=== PATIENT | female | born 1995 | race Two or more races ===

== ENCOUNTER 2019-01-31 04:24 | Emergency (ER) ==
[~2019-01-31] VITALS: Ht 167.6 cm; Wt 95.3 kg
[2019-01-31 04:27] VITALS: BP 138/79
[2019-01-31] MEDS ORDERED: DEXAMETHASONE SOD PHOSPHATE 10 MG/ML VIAL ONE (05:12)
[2019-01-31] MEDS ORDERED: LIDOCAINE VISCOUS 2% UD 15 ML UDC ONE (05:13)
[2019-01-31] MEDS ORDERED: DEXAMETHASONE SOD PHOSPHATE 10 MG/ML VIAL IM ONE (05:30)
[2019-01-31] MEDS ORDERED: LIDOCAINE VISCOUS 2% UD 15 ML UDC MM ONE (05:30)
== END 2019-01-31 05:25 | disposition home or self-care (01) ==
LOC: ER 04:31
DX: J02.9 Acute pharyngitis, unspecified (principal); R59.1 Generalized enlarged lymph nodes
CPT/HCPCS: 87070; 87880; 96372; 99283; J1100; 86403-TC

== ENCOUNTER 2019-05-25 13:25 | Emergency (ER) | payer SELFPAY ==
[~2019-05-25] VITALS: Ht 167.6 cm; Wt 90.7 kg
[2019-05-25] MEDS ORDERED: KETOROLAC TROMETHAMINE INJ 30 MG/ML VIAL ONE (13:43)
[2019-05-25] MEDS ORDERED: ONDANSETRON HCL/PF 4 MG/2 ML VIAL ONE (13:44)
[2019-05-25] MEDS ORDERED: ONDANSETRON HCL/PF 4 MG/2 ML VIAL IVP ONE (14:00)
[2019-05-25] MEDS ORDERED: IV NS 0.9% 1,000 ML BAG IV ONE (14:00)
[2019-05-25] MEDS ORDERED: KETOROLAC TROMETHAMINE INJ 30 MG/ML VIAL IV ONE (14:00)
[2019-05-25 14:01] LABS: APPEARANCE,URINE Clear (CLEAR)
[2019-05-25 14:02] LABS: BASOPHILS # (AUTO) 0.1 /CMM (0.0-0.2); BASOPHILS % (AUTO) 0.5 % (0.0-2.0); EOSINOPHILS % (AUTO) 0.3 % (0.0-6.0); HEMATOCRIT 45 % (33-45); HEMOGLOBIN 15.1 g/dL (11.5-14.8); LYMPHOCYTES # (AUTO) 2.6 /CMM (0.8-4.8); LYMPHOCYTES % (AUTO) 16.6 % (20.0-44.0); MEAN CORPUSCULAR HGB CONC 34 g/dl (31.0-36.0); MEAN CORPUSCULAR VOLUME 88 fL (82-100); MONOCYTES # (AUTO) 0.7 /CMM (0.1-1.30); MONOCYTES % (AUTO) 4.8 % (2.0-12.0); NEUTROPHILS % (AUTO) 77.8 % (43.0-81.0); PLATELET COUNT (AUTO) 269 /CMM (150-450); WHITE BLOOD COUNT (AUTO) 15.5 K/uL (4.3-11.0)
[2019-05-25 14:03] LABS: COLOR,URINE OTHER (YELLOW)
[2019-05-25 14:07] LABS: CREATININE 0.8 mg/dL (0.6-1.3); POTASSIUM 3.9 mmol/L (3.5-5.1)
[2019-05-25 14:09] LABS: WBC,URINE 21-50 /HPF (0-3)
[2019-05-25 14:10] LABS: BACTERIA,URINE 1+ /HPF (None Seen); SQUAMOUS EPITHELIAL CELL,UR Moderate /HPF (None Seen)
[2019-05-25 14:12] LABS: ALBUMIN 4.4 g/dL (3.4-5.0); BILIRUBIN,DIRECT 0.1 mg/dL (0.0-0.2); BILIRUBIN,TOTAL 0.4 mg/dL (0.2-1.0); TOTAL PROTEIN, SERUM 8.8 g/dL (6.4-8.2)
[2019-05-25] MEDS ORDERED: CEFTRIAXONE 1GM BAG (ER ONLY) 1 GM/50 ML PIGGYBACK IV ONE (15:00)
--- NOTE | 2019-05-25 15:20 | NUR ---
Patient discharged to home in stable condition. Written and verbal after care instructions given. Patient verbalizes understanding of instruction. IV removed. Catheter intact and site benign. Pressure and 4x4 applied to site. No bleeding noted.
[2019-05-25 15:23] VITALS: BP 116/70
== END 2019-05-25 15:20 | disposition home or self-care (01) ==
LOC: ER 13:29
DX: N10 Acute pyelonephritis (principal)
CPT/HCPCS: 36415; 80048; 80076; 81001; 84703; 85025; 87040 ×2; 87077; 87086; 87186; 96365; 96375; 99283; J0696; J1885; J2405; J7030; 81000-TC

== ENCOUNTER 2019-05-29 02:14 | Emergency (ER) | payer MEDICAID ==
[~2019-05-29] VITALS: Ht 167.6 cm; Wt 90.7 kg
[2019-05-29 02:23] VITALS: BP 132/96
[2019-05-29 02:51] LABS: APPEARANCE,URINE Clear (CLEAR); BILIRUBIN,URINE Negative (NEGATIVE); BLOOD, URINE Small Ery/uL (NEGATIVE); COLOR,URINE Yellow (YELLOW); KETONES,URINE Negative (NEGATIVE); LEUKOCYTE ESTERASE ,URINE Trace (NEGATIVE); NITRITE, URINE Negative (NEGATIVE); PROTEIN,URINE Negative (NEGATIVE); UGLUCOSE Negative (NEGATIVE); UROBILINOGEN,URINE 0.2 EU/dL (0.2)
[2019-05-29] MEDS ORDERED: NITROFURANTOIN/NITROFURAN MAC 100 MG CAPSULE ONE (02:54)
[2019-05-29] MEDS ORDERED: HYDROCODONE/APAP 5/325MG 1 EACH TABLET ONE (02:54)
[2019-05-29] MEDS: NITROFURANTOIN/NITROFURAN MAC 100 MG CAPSULE PO ONE (02:59)
[2019-05-29] MEDS: HYDROCODONE/APAP 5/325MG 1 EACH TABLET PO ONE (02:59)
[2019-05-29 03:15] LABS: BACTERIA,URINE Few /HPF (None Seen); SQUAMOUS EPITHELIAL CELL,UR Few /HPF (None Seen)
== END 2019-05-29 03:00 | disposition home or self-care (01) ==
LOC: ER 02:14
DX: N12 Tubulo-interstitial nephritis, not specified as acute or chronic (principal); R10.9 Unspecified abdominal pain
CPT/HCPCS: 81000-TC; 87086-TC

== ENCOUNTER 2019-06-01 17:40 | Emergency (ER) | payer MEDICAID ==
[~2019-06-01] VITALS: Ht 167.6 cm; Wt 90.7 kg
[2019-06-01] MEDS ORDERED: SUMATRIPTAN SUCCINATE 25 MG TABLET PO ONE (18:00)
--- NOTE | 2019-06-01 18:00 | NUR ---
PATIENT CAME IN TO THE ER C/O HEADACHE, PRESSURE LIKE PAIN 7/10 PS, +NAUSEA. ON ROOM AIR, BREATHING EVENLY AND UNLABORED, CONNECTED TO THE MONITOR AND PULSE OX. KEPT COMFORTABLE, WILL CONTINUE TO MONITOR ACCORDINGLY.
[2019-06-01] MEDS ORDERED: SUMATRIPTAN SUCCINATE 25 MG TABLET ONE (18:20)
[2019-06-01 19:07] VITALS: BP 130/71
--- NOTE | 2019-06-01 19:07 | NUR ---
Patient discharged to home in stable condition. Written and verbal after care instructions given. Patient verbalizes understanding of instruction.
== END 2019-06-01 19:07 | disposition home or self-care (01) ==
LOC: ER 17:44
DX: R51 Headache (principal)
CPT/HCPCS: 70450-TC; 84703-TC

== ENCOUNTER 2019-06-08 02:01 | Emergency (ER) | payer MEDICAID ==
[~2019-06-08] VITALS: Ht 167.6 cm; Wt 102.5 kg
--- NOTE | 2019-06-08 02:10 | NUR ---
PT BIB SELF C/O L SIDED CP SINCE YESTERDAY, LLQ ABDOMINAL PAIN WITH NAUSEAX5 HRS. URINARY FREQUENCY X2 DAYS. PT AMBULATORY. NAD NOTED. RESP EVEN AND UNLABORED. PT ON MONITOR IN BED 11. WILL CONTINUE TO MONITOR.
--- NOTE | 2019-06-08 02:20 | NUR ---
TECH AT BEDSIDE FOR EKG
[2019-06-08] MEDS ORDERED: ACETAMINOPHEN ES 500 MG TABLET PO ONE (02:30)
--- NOTE | 2019-06-08 02:30 | NUR ---
BLOOD DRAWN AND GIVEN TO LAB
[2019-06-08 02:32] LABS: APPEARANCE,URINE Clear (CLEAR); BILIRUBIN,URINE Negative (NEGATIVE); BLOOD, URINE Small Ery/uL (NEGATIVE); COLOR,URINE Yellow (YELLOW); KETONES,URINE Negative (NEGATIVE); LEUKOCYTE ESTERASE ,URINE Negative (NEGATIVE); NITRITE, URINE Negative (NEGATIVE); PROTEIN,URINE Negative (NEGATIVE); UGLUCOSE Negative (NEGATIVE); UROBILINOGEN,URINE 0.2 EU/dL (0.2)
--- NOTE | 2019-06-08 02:32 | NUR ---
FRIEND AT BEDSIDE
[2019-06-08] MEDS ORDERED: ACETAMINOPHEN ES 500 MG TABLET ONE (02:33)
[2019-06-08 02:41] LABS: CALCIUM, SERUM 9.7 mg/dL (8.5-10.1); CREATININE 0.7 mg/dL (0.6-1.3); POTASSIUM 3.4 mmol/L (3.5-5.1)
[2019-06-08 02:43] LABS: BASOPHILS % (AUTO) 0.3 % (0.0-2.0); EOSINOPHILS % (AUTO) 0.8 % (0.0-6.0); HEMATOCRIT 42 % (33-45); HEMOGLOBIN 14.3 g/dL (11.5-14.8); LYMPHOCYTES # (AUTO) 5.4 /CMM (0.8-4.8); LYMPHOCYTES % (AUTO) 45.1 % (20.0-44.0); MEAN CORPUSCULAR HGB CONC 34 g/dl (31.0-36.0); MEAN CORPUSCULAR VOLUME 88 fL (82-100); MONOCYTES # (AUTO) 0.7 /CMM (0.1-1.30); MONOCYTES % (AUTO) 6.2 % (2.0-12.0); NEUTROPHILS # (AUTO) 5.7 /CMM (1.8-8.9); NEUTROPHILS % (AUTO) 47.6 % (43.0-81.0); PLATELET COUNT (AUTO) 238 /CMM (150-450); RED BLOOD CELL COUNT(AUTO) 4.79 MIL/uL (4.0-5.2); WHITE BLOOD COUNT (AUTO) 11.9 K/uL (4.3-11.0)
--- NOTE | 2019-06-08 02:47 | NUR ---
RADIOLOGY AT BEDSIDE FOR XRAY
[2019-06-08 04:27] VITALS: BP 133/76
--- NOTE | 2019-06-08 04:27 | NUR ---
Patient is resting comfortably in bed with FAMILY AT BEDSIDE. VSS.
[2019-06-08 04:38] LABS: BACTERIA,URINE Few /HPF (None Seen); RBC,URINE 0-2 /HPF (0-2); WBC,URINE 0-2 /HPF (0-3)
[2019-06-08 04:39] LABS: SQUAMOUS EPITHELIAL CELL,UR Few /HPF (None Seen)
--- NOTE | 2019-06-08 05:37 | NUR ---
IV removed. Catheter intact and site benign. Pressure and 4x4 applied to site. No bleeding noted.Patient discharged to home in stable condition. Written and verbal after care instructions given. Patient verbalizes understanding of instruction. PT AMBULATORY WITH STEADY GAIT.
== END 2019-06-08 05:38 | disposition home or self-care (01) ==
LOC: ER 02:05
DX: N12 Tubulo-interstitial nephritis, not specified as acute or chronic (principal)
CPT/HCPCS: 36415; 71045-TC; 80048-TC; 81000-TC; 84703-TC; 85025-TC; 87086-TC

== ENCOUNTER 2020-05-31 22:08 | Emergency (ER) | payer MEDICAID, OTHER ==
[~2020-05-31] VITALS: Ht 167.6 cm; Wt 86.2 kg
[2020-05-31 22:15] VITALS: BP 127/75
[2020-05-31] MEDS ORDERED: IBUPROFEN 400 MG TABLET PO ONE (23:00)
[2020-05-31] MEDS ORDERED: IBUPROFEN 400 MG TABLET ONE (23:19)
--- NOTE | 2020-05-31 23:27 | NUR ---
Patient discharged to home in stable condition. Written and verbal after care instructions given. Patient verbalizes understanding of instruction.
== END 2020-05-31 23:56 | disposition home or self-care (01) ==
LOC: ER 22:17
DX: S16.1XXA Strain of muscle, fascia and tendon at neck level, initial encounter (principal); S20.212A Contusion of left front wall of thorax, initial encounter; G43.909 Migraine, unspecified, not intractable, without status migrainosus; V49.49XA Driver injured in collision with other motor vehicles in traffic accident, initial encounter; Y93.89 Activity, other specified; Y92.488 Other paved roadways as the place of occurrence of the external cause; Y99.8 Other external cause status
CPT/HCPCS: 71100-TC

== ENCOUNTER 2020-10-27 21:22 | Emergency (ER) | payer OTHER ==
[~2020-10-27] VITALS: Ht 167.6 cm; Wt 74.8 kg
--- NOTE | 2020-10-27 21:34 | NUR ---
urine collected. sent to lab
--- NOTE | 2020-10-27 21:43 | NUR ---
PT AAOX4. BIBSELF C/O LLW PAIN FOR THE PAST 3 DAYS. PT PLACED IN BED 16 ON MONITOR AND PULSE OX. VSS. PA AT BEDSIDE FOR EVAL. AWAITING ORDERS.
--- NOTE | 2020-10-27 21:44 | NUR ---
PT MOVED TO ER BED 16.
--- NOTE | 2020-10-27 21:46 | NUR ---
ROSA dale at bedside for pelvic exam. CAIN rowell at bedside as seed potato cutter.
[2020-10-27] MEDS ORDERED: KETOROLAC TROMETHAMINE 15 MG/ML VIAL ONE (21:47)
[2020-10-27] MEDS ORDERED: ONDANSETRON HCL/PF 4 MG/2 ML VIAL ONE (21:47)
[2020-10-27] MEDS: IV NS 0.9% 1,000 ML BAG IV ONE (22:00)
[2020-10-27] MEDS: KETOROLAC TROMETHAMINE INJ 30 MG/ML VIAL IV ONE (22:09)
[2020-10-27] MEDS: ONDANSETRON HCL/PF 4 MG/2 ML VIAL IVP ONE (22:10)
[2020-10-27 22:14] LABS: BASOPHILS # (AUTO) 0.1 /CMM (0.0-0.2); BASOPHILS % (AUTO) 0.7 % (0.0-2.0); EOSINOPHILS % (AUTO) 0.7 % (0.0-6.0); HEMATOCRIT 44 % (33-45); HEMOGLOBIN 14.7 g/dL (11.5-14.8); LYMPHOCYTES # (AUTO) 4.3 /CMM (0.8-4.8); LYMPHOCYTES % (AUTO) 43.5 % (20.0-44.0); MEAN CORPUSCULAR HGB CONC 34 g/dl (31.0-36.0); MEAN CORPUSCULAR VOLUME 89 fL (82-100); MONOCYTES # (AUTO) 0.5 /CMM (0.1-1.30); MONOCYTES % (AUTO) 5.1 % (2.0-12.0); PLATELET COUNT (AUTO) 210 /CMM (150-450); RED BLOOD CELL COUNT(AUTO) 4.93 MIL/uL (4.0-5.2)
[2020-10-27 22:41] LABS: CALCIUM, SERUM 9.5 mg/dL (8.5-10.1); CREATININE 0.9 mg/dL (0.6-1.3); POTASSIUM 3.5 mmol/L (3.5-5.1)
--- NOTE | 2020-10-27 22:42 | NUR ---
US AT BEDSIDE
[2020-10-27 22:47] LABS: ALBUMIN 4.5 g/dL (3.4-5.0); BILIRUBIN,DIRECT 0.1 mg/dL (0.0-0.2); BILIRUBIN,TOTAL 0.5 mg/dL (0.2-1.0); TOTAL PROTEIN, SERUM 8.5 g/dL (6.4-8.2)
[2020-10-27 22:59] LABS: BILIRUBIN,URINE NEGATIVE (NEGATIVE); COLOR,URINE YELLOW (YELLOW); LEUKOCYTE ESTERASE ,URINE NEGATIVE (NEGATIVE); NITRITE, URINE NEGATIVE (NEGATIVE); PROTEIN,URINE NEGATIVE (NEGATIVE); UGLUCOSE NEGATIVE (NEGATIVE); UROBILINOGEN,URINE 0.2 EU/dL (0.2)
[2020-10-27] MEDS ORDERED: IBUP-1955 PO (23:04)
[2020-10-27] MEDS ORDERED: CLOT21CR7 VG (23:04)
[2020-10-27] MEDS ORDERED: FLUC150T PO (23:04)
[2020-10-27 23:09] LABS: BACTERIA,URINE None seen /HPF (None Seen); SQUAMOUS EPITHELIAL CELL,UR Moderate /HPF (None Seen); WBC,URINE 0-2 /HPF (0-3)
[2020-10-27] MEDS ORDERED: TRAM50TA2 PO (23:16)
[2020-10-27] MEDS ORDERED: METR500T PO (23:20)
[2020-10-27] MEDS ORDERED: ACETAMINOPHEN ES 500 MG TABLET ONE (23:27)
[2020-10-27] MEDS ORDERED: FLUCONAZOLE (100 MG) 100 MG TABLET ONE (23:29)
[2020-10-27] MEDS ORDERED: METRONIDAZOLE 500 MG TABLET ONE (23:30)
[2020-10-27] MEDS: ACETAMINOPHEN 325 MG TABLET PO ONE (23:40)
[2020-10-27] MEDS: FLUCONAZOLE (100 MG) 100 MG TABLET PO ONE (23:40)
[2020-10-27] MEDS: METRONIDAZOLE 500 MG TABLET PO ONE (23:40)
--- NOTE | 2020-10-27 23:40 | NUR ---
Patient discharged to home in stable condition. Written and verbal after care instructions given. Patient verbalizes understanding of instruction and RX. Pt ambulated out of ED. Denies pain, vss.
--- NOTE | 2020-10-27 23:40 | NUR ---
IV removed. Catheter intact and site benign. Pressure and 4x4 applied to site. No bleeding noted.
[2020-10-27 23:43] VITALS: BP 119/72
== END 2020-10-27 23:43 | disposition home or self-care (01) ==
LOC: EDUNIT# 21:22 → ER 21:25
DX: N76.0 Acute vaginitis (principal); B37.3 Candidiasis of vulva and vagina; G43.909 Migraine, unspecified, not intractable, without status migrainosus; Z79.899 Other long term (current) drug therapy
CPT/HCPCS: 36415; 76856; 80048; 80076; 81001; 83690; 84703; 85025; 87210; 96361; 96374; 96375; 99284; J1885; J2405; J7030

== ENCOUNTER 2021-05-29 23:08 | Emergency (ER) | payer OTHER ==
[~2021-05-29] VITALS: Ht 167.6 cm; Wt 74.8 kg
[~2021-05-29 23:08] MED LIST: CLOT21CR7 VG; FLUC150T PO; IBUP-1955 PO; METR500T PO; TRAM50TA2 PO
--- NOTE | 2021-05-29 23:34 | NUR ---
BIB SELF IN [facility] C/O LEFT LOWER ABDOMINAL PAIN RADIATING TO THE BACK AT SCALE OF 8-10 SCALE . PATIENT IS AOX4 INDEPENDENT. NO APPARENT RESPIRATORY DISTRESS. AFEBRILE. VSS. PLACED ON GOWN. PT IS ON ER BED 1.
[2021-05-30 00:31] LABS: BASOPHILS # (AUTO) 0.1 K/uL (0.0-0.2); BASOPHILS % (AUTO) 0.6 % (0.0-2.0); HEMATOCRIT 41 % (33-45); LYMPHOCYTES # (AUTO) 3.8 K/uL (0.8-4.8); LYMPHOCYTES % (AUTO) 43.7 % (20.0-44.0); MEAN CORPUSCULAR HGB CONC 34 g/dl (31.0-36.0); MEAN CORPUSCULAR VOLUME 92 fL (82-100); MONOCYTES # (AUTO) 0.6 K/uL (0.1-1.30); MONOCYTES % (AUTO) 6.5 % (2.0-12.0); NEUTROPHILS # (AUTO) 4.2 K/uL (1.8-8.9); NEUTROPHILS % (AUTO) 48.2 % (43.0-81.0); PLATELET COUNT (AUTO) 201 K/uL (150-450); RED BLOOD CELL COUNT(AUTO) 4.51 MIL/uL (4.0-5.2); WHITE BLOOD COUNT (AUTO) 8.8 K/uL (4.3-11.0)
--- NOTE | 2021-05-30 00:36 | NUR ---
ultrasound done at bedside.
[2021-05-30 01:01] LABS: CALCIUM, SERUM 9.2 mg/dL (8.5-10.1); CREATININE 0.6 mg/dL (0.6-1.3); POTASSIUM 4.2 mmol/L (3.5-5.1)
[2021-05-30 01:24] LABS: ALBUMIN 3.9 g/dL (3.4-5.0); BILIRUBIN,DIRECT 0.1 mg/dL (0.0-0.2); BILIRUBIN,TOTAL 0.3 mg/dL (0.2-1.0); TOTAL PROTEIN, SERUM 7.6 g/dL (6.4-8.2)
--- NOTE | 2021-05-30 02:15 | NUR ---
called lab to f/u on results on urine
[2021-05-30 02:20] LABS: BILIRUBIN,URINE Negative (NEGATIVE); COLOR,URINE YELLOW (YELLOW); LEUKOCYTE ESTERASE ,URINE Trace (NEGATIVE); NITRITE, URINE Negative (NEGATIVE); PH,URINE 7.5 (5.0-8.0); PROTEIN,URINE Negative (NEGATIVE); UGLUCOSE Negative (NEGATIVE); UROBILINOGEN,URINE 0.2 EU/dL (0.2)
[2021-05-30] MEDS ORDERED: ACETAMINOPHEN 325 MG TABLET ONE (02:35)
--- NOTE | 2021-05-30 02:40 | NUR ---
patient still complaining of left lower abdominal pain at scale of 6/10. Tylenol 650 mg administered as MD verbally ordered. noted and carried out order.
[2021-05-30 02:47] LABS: BACTERIA,URINE None seen /HPF (None Seen); RBC,URINE 0-2 /HPF (0-2); SQUAMOUS EPITHELIAL CELL,UR Few /HPF (None Seen); WBC,URINE 0-2 /HPF (0-3)
[2021-05-30] MEDS ORDERED: ACETAMINOPHEN 325 MG TABLET PO ONE (03:00)
[2021-05-30] MEDS ORDERED: PREN1TAB81 PO (03:11)
--- NOTE | 2021-05-30 03:15 | NUR ---
Patient discharged to home in stable condition. Written and verbal after care instructions given. Patient verbalizes understanding of instruction.IV removed. Catheter intact and site benign. Pressure and 4x4 applied to site. No bleeding noted. Pt ambulatory with a steady gait
[2021-05-30 03:17] VITALS: BP 117/71
== END 2021-05-30 03:17 | disposition home or self-care (01) ==
LOC: ER 23:11
DX: O26.91 Pregnancy related conditions, unspecified, first trimester (principal); R10.32 Left lower quadrant pain; G43.909 Migraine, unspecified, not intractable, without status migrainosus; Z3A.01 Less than 8 weeks gestation of pregnancy
CPT/HCPCS: 36415; 76770-TC; 76805-TC; 80048-TC; 80076-TC; 81001; 84702-TC; 85025-TC; 86850-TC

== ENCOUNTER 2024-10-08 12:45 | Emergency (ER) | payer OTHER ==
[~2024-10-08] VITALS: Ht 167.6 cm; Wt 86.2 kg
[~2024-10-08 12:45] MED LIST changes: +PREN1TAB81 PO
[2024-10-08 13:31] LABS: BASOPHILS % (AUTO) 0.4 % (0.0-2.0); EOSINOPHILS # (AUTO) 0.1 K/uL (0.0-0.7); HEMATOCRIT 45 % (33-45); LYMPHOCYTES # (AUTO) 2.6 K/uL (0.8-4.8); LYMPHOCYTES % (AUTO) 32.4 % (20.0-44.0); MEAN CORPUSCULAR HEMOGLOBIN 30 PG (26.0-33.0); MEAN CORPUSCULAR HGB CONC 33 g/dl (31.0-36.0); MEAN CORPUSCULAR VOLUME 91 fL (82-100); MONOCYTES # (AUTO) 0.6 K/uL (0.1-1.30); MONOCYTES % (AUTO) 7.5 % (2.0-12.0); NEUTROPHILS # (AUTO) 4.8 K/uL (1.8-8.9); NEUTROPHILS % (AUTO) 58.7 % (43.0-81.0); PLATELET COUNT (AUTO) 249 K/uL (150-450); RED BLOOD CELL COUNT(AUTO) 4.96 MIL/uL (4.0-5.2); RED CELL DISTRIBUTION WIDTH 14.4 % (11.5-15.0); WHITE BLOOD COUNT (AUTO) 8.1 K/uL (4.3-11.0)
[2024-10-08 13:45] LABS: CALCIUM, SERUM 9.3 mg/dL (8.5-10.1); CREATININE 0.5 mg/dL (0.6-1.3); POTASSIUM 3.6 mmol/L (3.5-5.1)
[2024-10-08 13:46] LABS: APPEARANCE,URINE Clear (CLEAR); BILIRUBIN,URINE Negative (NEGATIVE); BLOOD, URINE Small Ery/uL (NEGATIVE); COLOR,URINE YELLOW (YELLOW); KETONES,URINE Negative (NEGATIVE); LEUKOCYTE ESTERASE ,URINE Negative (NEGATIVE); NITRITE, URINE Negative (NEGATIVE); PH,URINE 6.5 (5.0-8.0); PROTEIN,URINE Negative (NEGATIVE); UGLUCOSE Negative (NEGATIVE); UROBILINOGEN,URINE 0.2 EU/dL (0.2)
[2024-10-08 13:50] LABS: ALBUMIN 3.9 g/dL (3.4-5.0); BILIRUBIN,DIRECT 0.1 mg/dL (0.0-0.2); BILIRUBIN,TOTAL 0.5 mg/dL (0.2-1.0); TOTAL PROTEIN, SERUM 7.6 g/dL (6.4-8.2)
[2024-10-08 13:55] LABS: PREGNANCY TEST URINE QUAL POSITIVE (NEGATIVE)
[2024-10-08 14:08] LABS: ADD URINE CULTURE NO; BACTERIA,URINE Few /HPF (None Seen); SQUAMOUS EPITHELIAL CELL,UR Few /HPF (None Seen); URINE AMORPHOUS URATE Few /HPF (None Seen); WBC,URINE 0-2 /HPF (0-3)
[2024-10-08] MEDS: diphenhydrAMINE HCL 50 MG/ML VIAL IV ONE (14:30)
[2024-10-08] MEDS ORDERED: diphenhydrAMINE HCL 50 MG/ML VIAL ONE (14:58)
[2024-10-08] MEDS ORDERED: ACETAMINOPHEN ES 500 MG TABLET ONE (14:58)
[2024-10-08] MEDS ORDERED: METOCLOPRAMIDE HCL 10 MG/2 ML VIAL ONE (14:58)
[2024-10-08] MEDS: ACETAMINOPHEN ES 500 MG TABLET PO ONE (15:05)
[2024-10-08] MEDS: METOCLOPRAMIDE HCL 10 MG/2 ML VIAL IV ONE (15:05)
[2024-10-08] MEDS: IV NS 0.9% 1,000 ML BAG IV ONE (15:05)
[2024-10-08] MEDS ORDERED: PNV1TAB.4 PO (17:29)
[2024-10-08 17:38] VITALS: BP 133/86; TEMP 99.1; O2SAT 99
== END 2024-10-08 17:39 | disposition home or self-care (01) ==
LOC: ER 12:55
DX: O99.891 Other specified diseases and conditions complicating pregnancy (principal); Z3A.08 8 weeks gestation of pregnancy; R10.32 Left lower quadrant pain; R42 Dizziness and giddiness; R11.2 Nausea with vomiting, unspecified; R51.9 Headache, unspecified
CPT/HCPCS: 99285; 96374; 76805; 96361; 96375; 85025; 80048; 87086; 83690; 80076; 84703; 81001; 36415; 86850; 84702; J1200; J2765; J7030